=== PATIENT | female | born 1970 | race Caucasian/White ===

== ENCOUNTER 2020-07-29 17:46 | Outpatient (REF) | payer SELFPAY | END 2020-07-29 17:47 | disposition home or self-care (01) | LOC: HO.LAB 17:46 | PROVIDERS: Visit Provider Internal Medicine | DX: Z20.828 Contact with and (suspected) exposure to other viral communicable diseases (principal) | CPT/HCPCS: C9803; U0003 ==

== ENCOUNTER → 2022-03-08 14:58 | Outpatient (BNVA) | payer OTHER, SELFPAY | PROVIDERS: PCP Pediatrics; Visit Provider Physician Assistant Surgical | DX: E66.9 Obesity, unspecified (principal); Z68.35 Body mass index [BMI] 35.0-35.9, adult | CPT/HCPCS: 99202; 99211 ==

== ENCOUNTER 2022-03-08 16:38 | Outpatient (REF) | payer OTHER, SELFPAY ==
[2022-03-09 10:59] LABS: H Pylori Breath Test Negative (Negative)
== END 2022-03-08 16:39 | disposition home or self-care (01) ==
LOC: HO.LNP 16:38
PROVIDERS: Visit Provider Physician Assistant Surgical
DX: E66.9 Obesity, unspecified (principal); Z11.0 Encounter for screening for intestinal infectious diseases
CPT/HCPCS: 83013

== ENCOUNTER 2022-03-16 09:30 | Outpatient (REF) | payer OTHER, SELFPAY ==
--- NOTE | ~2022-03-16 | XR_ITS ---
EXAMINATION: XR CHEST CLINICAL INFORMATION: Bariatric service evaluation. E66.9 COMPARISON: None TECHNIQUE: 2 views of the chest were obtained. FINDINGS: The lungs are clear. There is no airspace consolidation, hyperinflation, groundglass opacity, or effusion. Heart is within normal size. The hilar and mediastinal contours are normal. Normal vascularity. No acute bony abnormality. There is calcific tendinosis bilateral shoulders in region of distal supraspinatus tendons. XR/XR chest 2V IMPRESSION: -Lungs clear. -Calcific tendinosis rotator cuff bilateral shoulders.
--- NOTE | 2022-03-16 09:35 | ECG_ITS ---
Test Reason : E66.9 Blood Pressure : / mmHG Vent. Rate : 044 BPM Atrial Rate : 044 BPM P-R Int : 148 ms QRS Dur : 076 ms QT Int : 498 ms P-R-T Axes : 032 028 010 degrees QTc Int : 425 ms Marked sinus bradycardia Abnormal ECG No previous ECGs available Referred By: Norman Aawn Electronically Signed By:NITESH HAZEL MD
[2022-03-16 09:50] LABS: MANUAL DIFF FLAG NO
[2022-03-16 10:12] LABS: Basophils Percent Auto 0.5 % (0-2); Eosinophils Absolute Auto 0.1 X10*3/uL (0.0-0.4); Eosinophils Percent Auto 1.1 % (0-4); Hematocrit 38.7 % (37.0-47.0); Hemoglobin 13.2 g/dl (12.0-16.0); Imm Gran Abs Auto 0.01 X10*3/uL (0.00-0.03); Imm Gran Pct Auto 0.2 % (0.0-0.4); Lymphocytes Absolute Auto 2.6 X10*3/uL (1.2-4.9); Lymphocytes Percent Auto 46.9 % (20-40); Mean Corpuscular HGB Conc 34.1 g/dl (31.0-35.0); Mean Corpuscular Hemoglobin 29.8 pg (27.0-33.0); Mean Corpuscular Volume 87.4 fL (80.0-98.0); Mean Platelet Volume 9.2 fL (9.4-12.3); Monocytes Absolute Auto 0.5 X10*3/uL (0.1-1.2); Monocytes Percent Auto 8.2 % (2-11); Neutrophils Absolute Auto 2.4 x10*3/uL (2.0-8.3); Neutrophils Percent Auto 43.1 % (45-73); Platelet Count 268 X10*3/uL (160-400); Red Blood Count 4.43 X10*6/uL (4.20-5.50); Red Cell Distribution Width 11.9 % (11.0-16.0); White Blood Count 5.5 X10*3/uL (4.8-10.8)
[2022-03-16 10:45] LABS: Alanine Aminotransferase 18 U/L (0-31); Albumin Level 4.3 g/dL (3.5-5.0); Alkaline Phosphatase 105 U/L (39-117); Anion Gap 10 (12-20); Aspartate Amino Transferase 19 U/L (5-31); Bilirubin Total 0.4 mg/dL (0.0-1.0); Blood Urea Nitrogen 12 mg/dL (9-16); C Reactive Protein 0.45 mg/dL (< or = 0.50); Calcium 9.6 mg/dL (8.4-10.2); Carbon Dioxide 25 mmol/L (22-29); Chloride 106 mmol/L (96-108); Cholesterol 231 mg/dL; Estimated Average Glucose 111 mg/dL; Estimated Glomerular Filt Rate > 60; Glucose Random 99 mg/dL (60-115); HDL Cholesterol 43 mg/dL; Hemoglobin A1c % 5.5 %; Iron 99 mcg/dL (30-160); LDL Cholesterol Calculated 169 mg/dl; Percent Iron Saturation 29 % (15-50); Potassium 4.4 mmol/L (3.3-5.1); Sodium 137 mmol/L (135-145); Total Iron Binding Capacity 347 mcg/dL (228-428); Total Protein 7.4 g/dL (6.5-8.0); Triglycerides 99 mg/dL; Unsaturated Iron Binding 248 ug/dL
[2022-03-16 11:10] LABS: Ferritin 38 ng/mL (10-250); TSH reflex Free T4 2.27 uIU/mL (0.32-4.0)
[2022-03-16 11:26] LABS: Folate 14.4 ng/mL (> or = 4.0); Vitamin B12 376 pg/mL (200-900)
[2022-03-16 11:57] LABS: Insulin 7 uU/mL (2-29)
[2022-03-17 12:42] LABS: Calcium (PTHI) 9.9 mg/dL (8.6-10.4); PTHI 66 pg/mL (16-77)
[2022-03-21 11:51] LABS: Vitamin B1 14 nmol/L (8-30)
[2022-03-22 00:48] LABS: Zinc 94 mcg/dL (60-130)
[2022-03-22 21:52] LABS: Vitamin A 41 mcg/dL (38-98)
== END 2022-03-16 09:31 | disposition home or self-care (01) ==
LOC: HO.XRAY 09:30
PROVIDERS: PCP Pediatrics; Visit Provider Physician Assistant Surgical
DX: E66.9 Obesity, unspecified (principal); R00.1 Bradycardia, unspecified; M75.32 Calcific tendinitis of left shoulder; M75.31 Calcific tendinitis of right shoulder
CPT/HCPCS: 36415; 71046; 80053; 80061; 82306; 82607; 82728; 82746; 83036; 83525; 83540; 83970; 84425; 84443; 84590; 84630; 85025; 86140; 93005

== ENCOUNTER → 2022-03-22 10:01 | Outpatient (BNVA) | payer OTHER, SELFPAY | PROVIDERS: PCP Pediatrics; Visit Provider Dietitian, Registered | DX: E66.9 Obesity, unspecified (principal); Z68.35 Body mass index [BMI] 35.0-35.9, adult | CPT/HCPCS: 97802 ==

== ENCOUNTER → 2022-05-27 14:46 | Outpatient (BNVA) | payer OTHER, SELFPAY | PROVIDERS: PCP Pediatrics; Visit Provider Physician Assistant Surgical | DX: E66.9 Obesity, unspecified (principal); Z68.36 Body mass index [BMI] 36.0-36.9, adult | CPT/HCPCS: 99212 ==

== ENCOUNTER → 2024-01-03 13:52 | Outpatient (BNVA) | payer OTHER, SELFPAY | PROVIDERS: PCP Pediatrics; Visit Provider Physician Assistant Surgical ==

== ENCOUNTER → 2024-02-26 08:01 | Outpatient (BNVA) | payer OTHER, SELFPAY | PROVIDERS: PCP Pediatrics; Visit Provider Surgery ==